=== PATIENT | male | born 1995 | race Caucasian/White ===

== ENCOUNTER 2018-09-26 20:21 | Emergency (ER) | payer MEDICAID ==
[~2018-09-26] VITALS: Ht 165.1 cm; Wt 87.2 kg
[2018-09-26 20:25] VITALS: BP 171/95; PULSE 105; RESP 19; Ht 165.1 cm; Wt 87.2 kg
--- NOTE | 2018-09-27 07:01 | ERD ---
ER Documentation Chief Complaint Chief Complaint RASH IN PENILE AREA; NOTICED TODAY WHILLE SHOWER; NO PAIN NO ITCHING HPI 22-year-old presents for rash over his penile area times 1 day. Patient states that he was taking a shower and noticed a rash. Denies any fevers or chills. Denies any pain or itchiness.. Denies any urethral discharge. Denies any dysuria, no history of unprotected sex. No prior similar symptoms. No other complaints. ROS All systems reviewed and are negative except as per history of present illness. Allergies Allergies: Coded Allergies: No Known Allergy (Unverified , 10/09/18) PMhx/Soc Hx Alcohol Use: Yes Hx Substance Use: Yes (MARIJUANA) Hx Tobacco Use: No Smoking Status: Current every day smoker Physical Exam Vitals Vital Signs Date Temp Pulse Resp B/P (MAP) Pulse Ox O2 O2 Flow FiO2 Time Delivery Rate 09/26/18 99.8 105 19 171/95 99 20:25 (120) Physical Exam Const: No acute distress Resp: Clear to auscultation bilaterally Cardio: Regular rate and rhythm, no murmurs Abd: Soft, non tender, non distended. Normal bowel sounds Skin: No petechiae or rashes Back: No midline or flank tenderness Ext: No cyanosis, or edema Neur: Awake and alert Psych: Normal Mood and Affect Genital exam: Done with nursing staff at bedside, there was a small maculopapular rash noted over the glans penis, no ulcerative lesions noted Procedures/MDM Medical Decision Making: Differential diagnosis includes but not limited to STD, allergic reaction, cont act dermatitis. Patient appeared well on physical exam. Genital exam done with nursing staff at bedside showed a small maculopapular rash over the glans penis. No lesions to suggest an STD. Patient advised to try [id number] hydrocortisone cream. Patient did have elevated blood pressure, patient however is asymptomatic. Patient advised follow-up PCP for repeat blood pressure. Patient advised to follow up with PCP in 1-2 days. Patient advised to return to ED for new or worsening symptoms. Patient stable on discharge from the ED. Disclaimer: Inadvertent spelling and grammatical errors are likely due to EHR/dictation software use and do not reflect on the overall quality of patient care. Also, please note that the electronic time recorded on this note does not necessarily reflect the actual time of the patient encounter. Departure Diagnosis: Primary Impression: Rash Condition: Fair Patient Instructions: Self-Care for Skin Rashes Referrals: [facility] YOU HAVE RECEIVED A MEDICAL SCREENING EXAM AND THE RESULTS INDICATE THAT YOU DO NOT HAVE A CONDITION THAT REQUIRES URGENT TREATMENT IN THE EMERGENCY DEPARTMENT. FURTHER EVALUATION AND TREATMENT OF YOUR CONDITION CAN WAIT UNTIL YOU ARE SEEN IN YOUR DOCTORS OFFICE WITHIN THE NEXT 1-2 DAYS. IT IS YOUR RESPONSIBILITY TO MAKE AN APPOINTMENT FOR FOLOW-UP CARE. IF YOU HAVE A PRIMARY DOCTOR --you should call your primary doctor and schedule an appointment IF YOU DO NOT HAVE A PRIMARY DOCTOR YOU CAN CALL OUR PHYSICIAN REFERRAL HOTLINE AT IF YOU CAN NOT AFFORD TO SEE A PHYSICIAN YOU CAN CHOSE FROM THE FOLLOW[facility] [address] [facility]. [facility] [address] [facility] [facility] [address] [facility] [address] [facility]. [facility] [address] [facility]. [facility]. [address] Additional Instructions: Call your primary care doctor TOMORROW for an appointment during the next 1-2 days.See the doctor sooner or return here if your condition worsens before your appointment time. Keep area clean and dry. No strong soaps. Wash twice daily for 7 days. JUSTYN MARISCAL DO Sep 27, 2018 07:01
== END 2018-09-26 23:31 | disposition home or self-care (01) ==
LOC: FTE 20:21
DX: R21 Rash and other nonspecific skin eruption (principal); F17.210 Nicotine dependence, cigarettes, uncomplicated
CPT/HCPCS: 99282